=== PATIENT | female | born 1950 | race Caucasian/White ===

== ENCOUNTER 2016-09-06 20:02 | Emergency (ER) | payer BC, MEDICARE ==
[2016-09-06 20:25] VITALS: BP 156/85
--- NOTE | 2016-09-06 21:27 | UC ---
Complaint Female HPI - HPI Summary HPI Summary: pt c/o left flank pain X 4 days. Reports left flank area feels as though was "kicked by horse". Pt also c/o increase in urinary frequency. Denies mo hematuria. Pt has frequent UTI's has macrobid at home and pyridium and took 1 tab of Macrobid and pyridium prior to arrival to clinic. - History Of Current Complaint Chief Complaint: UCGU Stated Complaint: KIDNEY COMPLAINT Time Seen by Provider: 09/06/16 21:14 Hx Obtained From: Patient Hx Last Menstrual Period: 1973 ?: No Onset/Duration: Gradual Onset, Lasting Days Timing: Constant Severity Initially: Mild Severity Currently: Moderate Character: Dull Aggravating Factor(s): Movement Associated Signs And Symptoms: Positive: Back Pain - Allergies/Home Medications Allergies/Adverse Reactions: Allergies Allergy/AdvReac Type Severity Reaction Status Date / Time No Known Allergies Allergy Verified 09/06/16 20:16 Home Medications: Home Medications Biotin W/ Vitamins C & E [Hair Skin & Nails ... 1250-7.5-7.5 Mcg-mg-Unt] 1 chw PO DAILY 09/06/16 [History Confirmed 09/06/16] Cranberry (Vaccinium Macrocarp [Cranberry] 600 mg PO DAILY 09/06/16 [History Confirmed 09/06/16] Nitrofurantoin Macrocrystals* [Macrodantin*] 100 mg PO ONCE 09/06/16 [History Confirmed 09/06/16] Phenazopyridine TAB* [Pyridium 100 mg TAB*] 100 mg PO ONCE 09/06/16 [History Confirmed 09/06/16] PMH/Surg Hx/FS Hx/Imm Hx Previously Healthy: Yes - frequent UTI - Surgical History Surgical History: Yes Surgery Procedure, Year, and Place: TONSILECTOMY, HYSTERECTOMY, GALL BLADDER REMOVAL - Family History Known Family History: Positive: Renal Disease - denies - Social History Alcohol Use: None Substance Use Type: None Smoking Status (MU): Never Smoked Tobacco - Immunization History Most Recent Tetanus Shot: 2014 Review of Systems Constitutional: Negative Skin: Negative Eyes: Negative ENT: Negative Respiratory: Negative Cardiovascular: Negative Gastrointestinal: Negative Genitourinary: Frequency, Other - left flank pain Motor: Negative Neurovascular: Negative Musculoskeletal: Negative Neurological: Negative Psychological: Negative All Other Systems Reviewed And Are Negative: Yes Physical Exam Triage Information Reviewed: Yes Appearance: Well-Appearing Vital Signs: Initial Vital Signs Temp 98.5 F 09/06/16 20:20 Pulse 80 09/06/16 20:20 Resp 16 09/06/16 20:20 BP 156/85 09/06/16 20:20 Pulse Ox 99 09/06/16 20:20 Eye Exam: Normal Neck exam: Normal Respiratory Exam: Normal Cardiovascular Exam: Normal Abdominal Exam: Other Abdomen Description: Positive: CVA Tenderness (L) Musculoskeletal Exam: Normal Neurological Exam: Normal Psychological Exam: Normal Skin Exam: Normal Complaint Female Dx - Differential Dx/Diagnosis Differential Diagnosis/HQI/PQRI: Urinary Tract Infection, Other - renal cell carcinoma, kidney stones, pyelonephritis, Provider Diagnoses: left flank pain Discharge - Discharge Plan Condition: Stable Disposition: HOME Patient Education Materials: Flank Pain (ED) Referrals: Leonie Bah [Primary Care Provider] - As Soon As Possible
== END 2016-09-06 21:33 | disposition home or self-care (01) ==
LOC: UCCORT 20:02
DX: M54.9 Dorsalgia, unspecified (principal); R35.0 Frequency of micturition; Z87.440 Personal history of urinary (tract) infections; Z90.710 Acquired absence of both cervix and uterus; Z90.49 Acquired absence of other specified parts of digestive tract
CPT/HCPCS: 99211; G0463

== ENCOUNTER 2016-12-14 15:02 | Emergency (ER) | payer MEDICARE ==
[2016-12-14 15:26] VITALS: BP 151/84
--- NOTE | 2016-12-14 16:04 | UC ---
Complaint Female HPI - HPI Summary HPI Summary: patient has had increased frequency of urination and dysuria for the past 2 days. - History Of Current Complaint Chief Complaint: UCGU Stated Complaint: URINARY Time Seen by Provider: 12/14/16 16:01 Hx Obtained From: Patient Hx Last Menstrual Period: 1973 ?: No Onset/Duration: Sudden Onset, Lasting Days Timing: Constant Severity Initially: Mild Severity Currently: Moderate Character: Burning Aggravating Factor(s): Urination Associated Signs And Symptoms: Positive: Negative - Allergies/Home Medications Allergies/Adverse Reactions: Allergies Allergy/AdvReac Type Severity Reaction Status Date / Time No Known Allergies Allergy Verified 12/14/16 15:25 PMH/Surg Hx/FS Hx/Imm Hx Previously Healthy: Yes - Surgical History Surgical History: Yes Surgery Procedure, Year, and Place: TONSILECTOMY, HYSTERECTOMY, GALL BLADDER REMOVAL - Family History Known Family History: Positive: Renal Disease - denies - Social History Alcohol Use: None Substance Use Type: None Smoking Status (MU): Never Smoked Tobacco - Immunization History Most Recent Tetanus Shot: 2014 Review of Systems Constitutional: Negative Skin: Negative Eyes: Negative ENT: Negative Respiratory: Negative Cardiovascular: Negative Gastrointestinal: Negative Genitourinary: Dysuria, Frequency Motor: Negative Neurovascular: Negative Musculoskeletal: Negative Neurological: Negative Psychological: Negative Is Patient Immunocompromised?: No All Other Systems Reviewed And Are Negative: Yes Physical Exam Triage Information Reviewed: Yes Appearance: Well-Appearing, Well-Nourished, Pain Distress Vital Signs: Initial Vital Signs Temp 97.5 F 12/14/16 15:20 Pulse 102 12/14/16 15:20 Resp 17 12/14/16 15:20 BP 151/84 12/14/16 15:20 Pulse Ox 100 12/14/16 15:20 Vital Signs Reviewed: Yes Eye Exam: Normal Eyes: Positive: Conjunctiva Clear ENT: Positive: Hearing grossly normal, Pharynx normal, TMs normal Dental Exam: Normal Neck exam: Normal Neck: Positive: Supple, Nontender, No Lymphadenopathy Respiratory Exam: Normal Respiratory: Positive: Chest non-tender, Lungs clear, Normal breath sounds Cardiovascular Exam: Normal Cardiovascular: Positive: RRR, No Murmur, Pulses Normal Abdominal Exam: Normal Abdomen Description: Positive: Nontender, No Organomegaly, Soft, CVA Tenderness (R) - neg, CVA Tenderness (L) - neg Bowel Sounds: Positive: Present Musculoskeletal Exam: Normal Musculoskeletal: Positive: Strength Intact, ROM Intact, No Edema Neurological Exam: Normal Neurological: Positive: Alert, Muscle Tone Normal Psychological Exam: Normal Skin Exam: Normal Complaint Female Dx - Course Course Of Treatment: hx obtained, exam performed ,meds reviewed, UA pos for leuks and nitrates, treated culture sent - Differential Dx/Diagnosis Differential Diagnosis/HQI/PQRI: Ureteral Stone, Urinary Tract Infection Provider Diagnoses: UTI Discharge - Discharge Plan Condition: Stable Disposition: HOME Prescriptions: Cephalexin CAP* [Keflex CAP*] 500 mg PO BID #14 cap Patient Education Materials: Urinary Tract Infection in Women (ED) Referrals: Leonie Bah [Primary Care Provider] - Additional Instructions: 1. increase your fluid intake and take the medication as prescribed. 2. Follow up with Dr Bah if not improving in the next 24 -48 hours.
== END 2016-12-14 16:11 | disposition home or self-care (01) ==
LOC: UCCORT 15:02
DX: N39.0 Urinary tract infection, site not specified (principal); B96.20 Unspecified Escherichia coli [E. coli] as the cause of diseases classified elsewhere; Z90.710 Acquired absence of both cervix and uterus; Z90.49 Acquired absence of other specified parts of digestive tract
CPT/HCPCS: 81003; 87077; 87086; 87186; 99212; G0463

== ENCOUNTER 2017-08-31 07:24 | Emergency (ER) | payer MEDICARE ==
[2017-08-31 07:35] VITALS: BP 135/78
--- NOTE | 2017-08-31 07:36 | UC ---
Eye Complaint HPI - HPI Summary HPI Summary: 67 yo female c/o medial eye swelling and irritation since yesterday. Something in eyelid sensation. No visual disturbances, no hx of similar in the past. Had routine eye doctor appt one week ago, Dr. Bustillo, here in [place]. Denies issues or new scripts. No fever / chills. No ear / throat / sinus discomfort. No recent illness or generalized rash. - History of Current Complaint Chief Complaint: UCEye Stated Complaint: LEFT EYE Hx Obtained From: Patient Hx Last Menstrual Period: 1973 ?: No Pain Intensity: 0 - Allergies/Home Medications Allergies/Adverse Reactions: Allergies Allergy/AdvReac Type Severity Reaction Status Date / Time No Known Allergies Allergy Verified 08/31/17 07:35 Home Medications: Home Medications diphenhydrAMINE HCl [Benadryl Allergy 25 MG CAP] 25 mg PO 08/31/17 [History] PMH/Surg Hx/FS Hx/Imm Hx Previously Healthy: Yes - Surgical History Surgical History: Yes Surgery Procedure, Year, and Place: TONSILECTOMY, HYSTERECTOMY, GALL BLADDER REMOVAL - Family History Known Family History: Positive: Renal Disease - denies - Social History Occupation: Employed Full-time Alcohol Use: None Substance Use Type: None Smoking Status (MU): Never Smoked Tobacco - Immunization History Most Recent Tetanus Shot: 2014 Review of Systems Constitutional: Negative Skin: Negative Eyes: Other - see hpi ENT: Other - see hpi Respiratory: Negative Cardiovascular: Negative Gastrointestinal: Negative Genitourinary: Negative Motor: Negative Neurovascular: Negative Musculoskeletal: Negative Neurological: Negative Psychological: Negative Is Patient Immunocompromised?: No All Other Systems Reviewed And Are Negative: Yes Physical Exam Triage Information Reviewed: Yes Appearance: Well-Appearing, Well-Nourished Vital Signs: Initial Vital Signs Temp 97.4 F 08/31/17 07:30 Pulse 100 08/31/17 07:30 Resp 16 08/31/17 07:30 BP 135/78 08/31/17 07:30 Pulse Ox 100 08/31/17 07:30 Vital Signs Reviewed: Yes Eye Exam: Other - PERRLA EOMI. L medial epicanthus area + swelling, small white drainage. No yellow green d/c. Lids everted, nad. Sclera white, conj pink. No current evidence of orbital or periorbital cellulitis. R eye unremarkable. ENT: Positive: Normal ENT inspection, Pharynx normal, TMs normal, Other - no cerumen impaction au Neck exam: Normal Neck: Positive: Supple, Nontender, No Lymphadenopathy Respiratory Exam: Normal - no tachypnea, no dyspnea Cardiovascular Exam: Normal - normal heart rate, non-diaphoretic Abdominal Exam: Normal - sitting up, no c/o's abd pain Musculoskeletal Exam: Normal - gait steady, moves x 4 ext's Neurological Exam: Normal - grossly nonfocal Psychological Exam: Normal - conversing easily and appropriately Skin Exam: Normal - no visible or reported rash Eye Complaint Course/Dx - Course Course Of Treatment: S/sx c/w DACROCYSTITIS. There is a not an [employer] generated definition of this, as such, this was explained to Ms. Cordoba, along with importance of close eye doctor follow up. Eyes not particularly watery today, denies over-tearing of L eye. Questions as posed ansered to the best of my ability. She will call first thing in the morning for eye doctor appt. - Differential Dx/Diagnosis Provider Diagnoses: Dacrocystitis Left eye Discharge - Sign-Out/Discharge Documenting (check all that apply): Discharge/Admit/Transfer - Discharge Plan Condition: Stable Disposition: HOME Prescriptions: Cephalexin CAP* [Keflex 500 CAP*] 500 mg PO TID #21 cap Moxifloxacin 0.5% OPHTH(NF) [Vigamox 0.5% OPHTH(NF)] 1 drop LEFT EYE TID #1 bottle Patient Education Materials: Antihistamine (By mouth), Cellulitis (ED), Blocked Tear Duct (ED) Referrals: Leonie Bah [Primary Care Provider] - Additional Instructions: Follow up with your eye doctor in the next 24-38 hours. Seek medical attention for wose or new problems in the meantime. Probiotic and / or yogurt while taking antibiotics. - Billing Disposition and Condition Condition: STABLE Disposition: HOME
== END 2017-08-31 08:09 | disposition home or self-care (01) ==
LOC: UCCORT 07:24
DX: H04.322 Acute dacryocystitis of left lacrimal passage (principal)
CPT/HCPCS: 99212; G0463

== ENCOUNTER 2018-02-11 07:26 | Emergency (ER) | payer MEDICARE ==
[2018-02-11 07:47] VITALS: BP 162/72
--- NOTE | 2018-02-11 08:18 | ED ---
GI/ HPI - HPI Summary HPI Summary: pt presents to the ED for evaluation of her urinary frequency. she states she was up every 30 minutes to urinate last night and she did not sleep much. she denies any dysuria. she feels slight suprapubic pressure. she states that she feels like she has a dysuria. she denies any fever, chills, n/v. - History of Current Complaint Chief Complaint: UCGU Stated Complaint: URINARY Hx Obtained From: Patient Hx Last Menstrual Period: 1973 Timing: Intermittent Severity: Mild Current Severity: Mild Pain Intensity: 0 Associated Signs and Symptoms: Negative: Hematemesis, Back Pain, Pallor, Dizziness, Weakness, Syncope, Nausea, Vomiting, Bruising, Weight Loss, Constipation, Blood w/Stool, Diarrhea, Diaphoresis, Fever, Hematuria, Dysuria, Change in Appetite, Bubble Bath, Dyspureunia, Flank Pain, Chills, Lightheadedness, Abdominal Pain, Cough, Chest Pain Aggravating Factor(s): Nothing Alleviating Factor(s): Nothing - Allergy/Home Medications Allergies/Adverse Reactions: Allergies Allergy/AdvReac Type Severity Reaction Status Date / Time adhesive tape Allergy See Comment Verified 02/11/18 07:40 Home Medications: Home Medications Etodolac [Etodolac ER] 500 mg PO DAILY 02/11/18 [History Confirmed 02/11/18] PMH/Surg Hx/FS Hx/Imm Hx Previously Healthy: Yes Endocrine/Hematology History: Reports: Hx Thyroid Disease - hypo Cardiovascular History: Reports: Hx Hypertension - Surgical History Surgery Procedure, Year, and Place: TONSILECTOMY, HYSTERECTOMY, GALL BLADDER REMOVAL Infectious Disease History: No Infectious Disease History: Denies: Traveled Outside the [place] in Last 30 Days - Family History Known Family History: Positive: Renal Disease - denies - Social History Alcohol Use: None Substance Use Type: Reports: None Smoking Status (MU): Never Smoked Tobacco Review of Systems Constitutional: Negative Eyes: Negative ENT: Negative Cardiovascular: Negative Respiratory: Negative Positive: Abdominal Pain - mild suprapubic tenderness Positive: frequency Musculoskeletal: Negative Skin: Negative Neurological: Negative Psychological: Normal All Other Systems Reviewed And Are Negative: No Physical Exam Triage Information Reviewed: Yes Vital Signs On Initial Exam: Initial Vitals Temp Pulse Resp BP Pulse Ox 97.6 F 106 16 162/72 98 02/11/18 07:43 02/11/18 07:43 02/11/18 07:43 02/11/18 07:43 02/11/18 07:43 Vital Signs Reviewed: Yes Appearance: Positive: Well-Appearing, Well-Nourished Skin: Positive: Warm, Dry Head/Face: Positive: Normal Head/Face Inspection Eyes: Positive: Normal ENT: Positive: Normal ENT inspection, Hearing grossly normal, Pharynx normal Neck: Positive: Supple, Nontender Respiratory/Lung Sounds: Positive: Clear to Auscultation, Breath Sounds Present Cardiovascular: Positive: Normal, RRR Abdomen Description: Positive: Nontender, Soft Bowel Sounds: Positive: Present Musculoskeletal: Positive: Normal Neurological: Positive: Normal, Sensory/Motor Intact, Alert, Oriented to Person Place, Time, CN Intact II-III Psychiatric: Positive: Normal AVPU Assessment: Alert Diagnostics - Vital Signs Vital Signs Temp Pulse Resp BP Pulse Ox 02/11/18 07:43 97.6 F 106 16 162/72 98 - Laboratory Lab Statement: Any lab studies that have been ordered have been reviewed, and results considered in the medical decision making process. GIGU Course/Dx - Course Course Of Treatment: pt is having a difficult time providing a urine sample. She is afebrile. she is non-toxic. I do not believe that she has pyelonephritis. I told patient I would treat her for a presumed UTI. However, I had a long discussion with her about other possible etiolgies including pyelonephritis, sepsis, uti, or other intraabdominal etiologies. I informed her if her symptoms progress or worsen, she should go to the closest ER for further evaluation. will call in rx for keflex. - Diagnoses Provider Diagnoses: UTI (urinary tract infection) Discharge - Sign-Out/Discharge Documenting (check all that apply): Patient Departure All imaging exams completed and their final reports reviewed: No Studies - Discharge Plan Condition: Stable Disposition: HOME Prescriptions: Cephalexin CAP* [Keflex CAP*] 500 mg PO TID #21 cap MDD 3 Patient Education Materials: Urinary Tract Infection in Women (ED) Referrals: Leonie Bah [Primary Care Provider] - Additional Instructions: followup with your primary care physician. take tylenol or motrin for pain and discomfort. if worse, please go to the nearest ED for further evaluation. - Billing Disposition and Condition Condition: STABLE Disposition: Home
== END 2018-02-11 08:32 | disposition home or self-care (01) ==
LOC: UCCORT 07:26
DX: N39.0 Urinary tract infection, site not specified (principal); I10 Essential (primary) hypertension; Z91.048 Other nonmedicinal substance allergy status
CPT/HCPCS: 99212; G0463

== ENCOUNTER 2018-08-27 07:06 | Emergency (ER) | payer MEDICARE ==
[2018-08-27 07:29] VITALS: BP 153/72
--- NOTE | 2018-08-27 08:01 | UC ---
Eye Complaint HPI - HPI Summary HPI Summary: 68 yo female with left upper eyelid redness and swelling x <24 hours recent URI symptoms no eye redness or d/c no visual complaints - History of Current Complaint Chief Complaint: UCEye Stated Complaint: RIGHT EYE CONCERN Time Seen by Provider: 08/27/18 08:01 Hx Obtained From: Patient Hx Last Menstrual Period: 1973 Onset/Duration: Gradual Onset Timing: Constant Severity Initially: Mild Severity Currently: None Pain Intensity: 0 Pain Scale Used: 0-10 Numeric Location of Injury: Eye Lid (upper) Aggravating Factor(s): Nothing Alleviating Factor(s): Nothing Associated Signs And Symptoms: Positive: Swelling Eyes: 1 - diffuse swelling/erythema 2 - chalazion - Allergies/Home Medications Allergies/Adverse Reactions: Allergies Allergy/AdvReac Type Severity Reaction Status Date / Time adhesive tape Allergy See Comment Verified 08/27/18 07:30 PMH/Surg Hx/FS Hx/Imm Hx Previously Healthy: Yes Cardiovascular History: Hypertension - Surgical History Surgical History: Yes Surgery Procedure, Year, and Place: TONSILECTOMY, HYSTERECTOMY, GALL BLADDER REMOVAL - Family History Known Family History: Positive: Hypertension, Renal Disease - denies - Social History Alcohol Use: None Substance Use Type: None Smoking Status (MU): Never Smoked Tobacco - Immunization History Most Recent Tetanus Shot: 2014 Review of Systems All Other Systems Reviewed And Are Negative: Yes Constitutional: Positive: Negative Skin: Positive: Negative Eyes: Positive: Other - right upper eyelid edema/erthyema ENT: Positive: Negative Respiratory: Positive: Negative Cardiovascular: Positive: Negative Gastrointestinal: Positive: Negative Genitourinary: Positive: Negative Motor: Positive: Negative Neurovascular: Positive: Negative Musculoskeletal: Positive: Negative Neurological: Positive: Negative Psychological: Positive: Negative Physical Exam Triage Information Reviewed: Yes Appearance: Well-Appearing, No Pain Distress, Well-Nourished Vital Signs: Initial Vital Signs Temp 97.4 F 08/27/18 07:25 Pulse 97 08/27/18 07:25 Resp 18 08/27/18 07:25 BP 153/72 08/27/18 07:25 Pulse Ox 98 08/27/18 07:25 Eyes: Positive: Conjunctiva Clear, Other: - see image ENT: Positive: Hearing grossly normal. Negative: Nasal congestion, Nasal drainage, Trismus, Muffled voice, Hoarse voice, Dental tenderness Dental: Negative: Dental Fracture @, Abscess @ Neck: Positive: Supple, Nontender Respiratory: Positive: Lungs clear, Normal breath sounds, No respiratory distress, No accessory muscle use Cardiovascular: Positive: RRR, No Murmur Musculoskeletal: Positive: ROM Intact, No Edema Neurological: Positive: Alert Psychological Exam: Normal Skin Exam: Normal Eye Complaint Course/Dx - Differential Dx/Diagnosis Provider Diagnosis: Chalazion of right upper eyelid Discharge - Sign-Out/Discharge Documenting (check all that apply): Patient Departure All imaging exams completed and their final reports reviewed: No Studies - Discharge Plan Condition: Stable Disposition: HOME Prescriptions: Cephalexin CAP* [Keflex CAP*] 500 mg PO QID #28 cap Patient Education Materials: Chalazion (ED) Referrals: Leonie Bah [Primary Care Provider] - Additional Instructions: warm compresses see you eye doctor in 4-7 days if not better - Billing Disposition and Condition Condition: STABLE Disposition: Home
== END 2018-08-27 08:16 | disposition home or self-care (01) ==
LOC: UCCORT 07:06
DX: H00.11 Chalazion right upper eyelid (principal); Z91.048 Other nonmedicinal substance allergy status
CPT/HCPCS: 99212; G0463